=== PATIENT | male | born 1990 | race Caucasian/White ===

== ENCOUNTER → 2018-11-29 11:33 | Outpatient (CLI) | payer OTHER, MEDICAID, SELFPAY ==
[2018-11-29 12:13] LABS: Add Manual Diff / Slide Review NO; Basophils Absolute Auto 0 /uL (0-100); Eosinophils Absolute Auto 100 /uL (0-450); Eosinophils Percent Auto 3.1 % (2-4); Hematocrit 43.8 % (41-53); Hemoglobin 14.9 g/dL (13.5-17.5); Lymphocytes Absolute Auto 1600 /uL (1100-4500); Lymphocytes Percent Auto 35.7 % (25-40); Mean Corpuscular Hemoglobin 29.7 PG (26-34); Mean Corpuscular Volume 87.3 fL (80-100); Monocytes Absolute Auto 300 /uL (0-900); Monocytes Percent Auto 7.6 % (3-14); Neutrophils Absolute Auto 2300 /uL (1500-7000); Neutrophils Percent Auto 52.6 % (50-75); Platelet Count 176 X10^3/uL (150-400); Red Blood Cell Count 5.01 X10^6/uL (4.5-5.9); Red Cell Distribution Width 13.3 % (11.6-14.8); White Blood Cell Count 4.4 X10^3/uL (4.5-11.0)
[2018-11-29 13:37] LABS: Alanine Aminotransferase 32 IU/L (21-72); Albumin 4.7 g/dL (3.5-5.0); Albumin Globulin Ratio 1.9 (1.0-2.8); Alkaline Phosphatase 56 U/L (38-126); Aspartate Aminotransferase 24 IU/L (17-59); BUN Creatinine Ratio 13.3 (6-22); Bilirubin Total 0.7 mg/dL (0.2-1.3); Blood Urea Nitrogen 12 mg/dL (9-20); Calcium 9.7 mg/dL (8.4-10.2); Carbon Dioxide 28 mmol/L (22-32); Chloride 102 mmol/L (98-107); Estimated Glomerular Filt Rate > 60.0 mL/min (>60); Globulin 2.5 g/dL (1.7-4.1); Glucose 71 mg/dL (70-100); HEMOLYSIS 15 (0-50); Potassium 4.2 mmol/L (3.4-5.1); Sodium 142 mmol/L (137-145); Total Protein 7.2 g/dL (6.3-8.2)
[2018-11-29 13:48] LABS: Free T4, Direct Thyroxine 0.95 ng/dL (0.78-2.19)
[2018-11-29 14:01] LABS: Thyroid Stimulating Hormone 1.05 uIU/mL (0.47-4.68)
[2018-12-01 16:44] LABS: Triiodothyronine T3 Total 100 ng/dL (76-181)
== END ==
PROVIDERS: PCP Internal Medicine; Visit Provider Internal Medicine
DX: R53.83 Other fatigue (principal); R25.1 Tremor, unspecified
CPT/HCPCS: 36415; 80053; 84439; 84443; 84480; 85025

== ENCOUNTER → 2018-12-14 09:10 | Outpatient (CLI) | payer OTHER, MEDICAID, SELFPAY ==
--- NOTE | 2018-12-14 | DI.MRI.S_ITS ---
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 After the administration of contrast, axial and coronal 3D VIBE or T1 spin echo with fat saturation through the brain. COMPARISON: None. FINDINGS: Image quality: Excellent. CSF Spaces: Basal cisterns are patent. No extra-axial fluid collections. Ventricles are normal in size and shape. Brain: No midline shift. No intracranial bleeds or masses. No abnormal intracranial enhancement. The brainstem appears normal. Diffusion-weighted images demonstrate no acute ischemic insults. No chronic ischemic insults. Normal intravascular flow voids are present. Skull and face: Calvarial marrow is normal in signal. Orbits appear normal. Sinuses: Polypoid mucosal thickening noted in the maxillary sinuses bilaterally. The mastoids appear clear. IMPRESSION: 1. No intracranial disease process. 2. No abnormal mass or suspicious postcontrast enhancement. 3. No abnormal intracranial signal. Dictated by: Nedra Condon MD, PhD on 12/14/2018 at 10:30 Approved by: Nedra Condon MD, PhD on 12/14/2018 at 10:34
== END ==
PROVIDERS: PCP Internal Medicine; Visit Provider Internal Medicine
DX: F89 Unspecified disorder of psychological development (principal); R25.1 Tremor, unspecified; Z87.820 Personal history of traumatic brain injury
CPT/HCPCS: 70553

== ENCOUNTER → 2020-09-15 15:52 | Outpatient (CLI) | payer OTHER, MEDICAID, SELFPAY ==
[2020-09-15 16:56] LABS: COVID19 -Nasal RAPID POSITIVE (Negative)
== END ==
PROVIDERS: Visit Provider Physician Assistant
DX: U07.1 COVID-19 (principal)
CPT/HCPCS: 87635

== ENCOUNTER → 2021-11-27 10:02 | Outpatient (CLI) | payer OTHER, SELFPAY ==
--- NOTE | 2021-11-27 10:16 | DI.RAD.S_ITS ---
PROCEDURE: XR LUMBAR SPINE 2-3V INDICATIONS: BACK PAIN TECHNIQUE: 3 views of the lumbar spine were acquired. COMPARISON: None. FINDINGS: Bones: 6 [id number] vertebrae are present. Mild facet arthrosis at L5-S1. There is normal bony alignment. No vertebral body compression fractures. No suspicious bony lesions. Soft tissues: Overlying bowel gas pattern is normal. No suspicious soft tissue calcifications. IMPRESSION: No significant abnormality. Dictated by: Shakeel Fiore M.D. on 11/27/2021 at 12:50 Approved by: Shakeel Fiore M.D. on 11/27/2021 at 12:51
== END ==
PROVIDERS: Referring Provider Internal Medicine Cardiovascular Disease; Visit Provider Internal Medicine Cardiovascular Disease
DX: M54.50 Low back pain, unspecified (principal)
CPT/HCPCS: 72100